=== PATIENT | male | born 1995 | race Caucasian/White ===

== ENCOUNTER → 2017-01-29 | Outpatient (CLI) | payer BC ==
[~2017-01-29] MED LIST: DOXYCYCLINE MO100 MG PO; IBU-6600 MG PO; IBU800 MG PO; MOTRIN400 MG PO; MOTRIN800 MG PO; TYLENOL W/CODEI1 TA2 PO; ZYRTEC10 MG PO
[2017-01-30 13:05] LABS: ACID FAST SMEAR Negative (.); ACID FAST SPEC PROCESSING Concentration (.)
== END | disposition home or self-care (01) ==
LOC: LAB 07:56 → RAD 07:56
PROVIDERS: Family Medicine
DX: J20.9 Acute bronchitis, unspecified (principal); R04.2 Hemoptysis; Z87.891 Personal history of nicotine dependence

== ENCOUNTER 2018-05-05 01:43 | Emergency (ER) | payer BC ==
[~2018-05-05] VITALS: Ht 187.9 cm; Wt 106.6 kg
[2018-05-05] MEDS ORDERED: XANAX0.5 MG PO (01:48)
[2018-05-05] MEDS ORDERED: CELEXA20 MG PO (01:49)
== END 2018-05-05 02:42 | disposition home or self-care (01) ==
LOC: ED 01:43
DX: F41.9 Anxiety disorder, unspecified (principal); R11.0 Nausea; R25.1 Tremor, unspecified; F41.0 Panic disorder [episodic paroxysmal anxiety]; Z88.8 Allergy status to other drugs, medicaments and biological substances

== ENCOUNTER → 2018-10-05 | Outpatient (CLI) | payer BC ==
[~2018-10-05] MED LIST changes: +CELEXA20 MG PO; +XANAX0.5 MG PO
== END | disposition home or self-care (01) ==
LOC: US 07:14
DX: R10.13 Epigastric pain (principal)

== ENCOUNTER 2021-05-18 15:22 | Emergency (ER) | payer BC | END 2021-05-18 16:53 | disposition home or self-care (01) | LOC: ED 15:22 | DX: H61.21 Impacted cerumen, right ear (principal); Z88.8 Allergy status to other drugs, medicaments and biological substances ==

== ENCOUNTER 2024-06-23 16:11 | Emergency (ER) | payer BC ==
[~2024-06-23] VITALS: Ht 182.8 cm; Wt 117.9 kg
[2024-06-23] MEDS ORDERED: Ketorolac Tromethamine 30 MG/ML VIAL IM ONE (16:30)
[2024-06-23] MEDS ORDERED: Cyclobenzaprine Hydrochlorid 10 MG TAB PO ONE (16:30)
[2024-06-23] MEDS ORDERED: methylPREDNISolone sod succ 125 MG VIAL IM ONE (16:30)
[2024-06-23] MEDS ORDERED: Water, Sterile 10 ML VIAL ONE (16:55)
[2024-06-23] MEDS ORDERED: PREDNISONE10 MG PO (18:01)
[2024-06-23] MEDS ORDERED: NAPROSYN500 MG PO (18:01)
[2024-06-23] MEDS ORDERED: CYCLOBENZAPRINE10 MG PO (18:01)
== END 2024-06-23 18:01 | disposition home or self-care (01) ==
LOC: ED 16:11
DX: M51.26 Other intervertebral disc displacement, lumbar region (principal); F41.9 Anxiety disorder, unspecified; Z79.899 Other long term (current) drug therapy; Z88.8 Allergy status to other drugs, medicaments and biological substances; X50.0XXA Overexertion from strenuous movement or load, initial encounter; X50.9XXA Other and unspecified overexertion or strenuous movements or postures, initial encounter; Y93.89 Activity, other specified; Y92.89 Other specified places as the place of occurrence of the external cause; Y99.8 Other external cause status

== ENCOUNTER 2024-08-05 19:00 | Emergency (ER) | payer BC ==
[~2024-08-05] VITALS: Ht 182.9 cm; Wt 117.9 kg
[~2024-08-05 19:00] MED LIST changes: +CYCLOBENZAPRINE10 MG PO; +NAPROSYN500 MG PO; +PREDNISONE10 MG PO
[2024-08-05] MEDS ORDERED: DOCUSATE SODIUM 100 MG/10 ML UDC OT ONE (19:35)
[2024-08-05] MEDS ORDERED: OFLOXACIN 10 ML10 M2 OT (20:38)
[2024-08-05] MEDS ORDERED: OFLOXACIN 0.3% 5 ML BOTTLE OT ONE (20:40)
== END 2024-08-05 20:59 | disposition home or self-care (01) ==
LOC: ED 19:00
DX: H61.21 Impacted cerumen, right ear (principal); H60.91 Unspecified otitis externa, right ear; Z79.899 Other long term (current) drug therapy; F41.9 Anxiety disorder, unspecified; Z88.8 Allergy status to other drugs, medicaments and biological substances

== ENCOUNTER → 2024-11-04 | Outpatient (CLI) | payer BC ==
[~2024-11-04] MED LIST changes: +OFLOXACIN 10 ML10 M2 OT
== END | disposition home or self-care (01) ==
LOC: US 01:40
PROVIDERS: ATTEND Internal Medicine
DX: K76.0 Fatty (change of) liver, not elsewhere classified (principal); R10.11 Right upper quadrant pain

== ENCOUNTER 2025-01-20 09:52 | Emergency (ER) | payer BC ==
[~2025-01-20] VITALS: Ht 182.8 cm; Wt 122.5 kg
[2025-01-20] MEDS ORDERED: LIDOCAINE 4% PATCH T ONE (10:20)
[2025-01-20] MEDS ORDERED: ZANAFLEX4 MG PO (11:14)
[2025-01-20] MEDS ORDERED: LIDOCAINE PAIN1 EACH T (11:14)
== END 2025-01-20 11:23 | disposition home or self-care (01) ==
LOC: ED 09:52
DX: M54.16 Radiculopathy, lumbar region (principal); F41.9 Anxiety disorder, unspecified; Z88.8 Allergy status to other drugs, medicaments and biological substances